=== PATIENT | male | born 1980 | race American Indian/Alaskan Native ===

== ENCOUNTER 2017-04-06 01:22 | Emergency (ER) | payer OTHER ==
[2017-04-06] MEDS ORDERED: REGLAN IV ONE (03:19)
--- NOTE | 2017-04-06 03:19 | Emergency Department Report ---
ED Headache HPI - General Chief Complaint: Headache Stated Complaint: HEADACHE Time Seen by Provider: 04/06/17 02:36 - History of Present Illness Initial Comments: 36M PMH none p/w c/o right sided headache x3-4 days. Pt states right radiated from anterior/right sided head to the rest of the head. Patient denies any photo or phonophobia no nausea no vomiting denies any fever or chills. Denies any recent head trauma. Denies any associated dizziness denies any associated dizziness or loss of consciousness. Denies any earache or sore throat denies any sinus congestion. Denies any blurry vision. No history of migraine headaches. Denies any family history of brain tumors or neurovascular problems. Denies any alcohol or substance abuse. States that he was seen at the [facility] on Saturday had blood work and head CT which was normal and discharged with prescription for Fioricet. Patient states the headache continued and is presenting today for a second assessment. On exam patient is awake alert and oriented 3 looks slightly uncomfortable but does not appear toxic. Patient states that he has not yet picked up his Fioricet and his headache is currently an 8 out of 10. Patient is fully lucid and able to follow all commands. Patient is accompanied by his Timing/Duration: other (48 hrs) Quality: moderate Head Injury Location: frontal, temporal Recent Head Trauma: no recent headache/trauma Allergies/Adverse Reactions: Allergies No Known Allergies Allergy (Verified 04/06/17 01:31) Home Medications: Ambulatory Orders Naproxen [Naprosyn TAB] 500 mg PO BID PRN #25 tablet 04/06/17 ED Review of Systems ROS: Stated complaint: HEADACHE Other details as noted in HPI Constitutional: denies: chills, fever Eyes: denies: eye pain, eye discharge, vision change ENT: denies: ear pain, throat pain Respiratory: denies: cough, shortness of breath, wheezing Cardiovascular: denies: chest pain, palpitations Endocrine: no symptoms reported Gastrointestinal: denies: abdominal pain, nausea, diarrhea Genitourinary: denies: urgency, dysuria Musculoskeletal: denies: back pain, joint swelling, arthralgia Skin: denies: rash, lesions Neurological: headache. denies: weakness, paresthesias Psychiatric: denies: anxiety, depression Hematological/Lymphatic: denies: easy bleeding, easy bruising ED Past Medical Hx - Past Medical History Previous Medical History?: No - Surgical History Past Surgical History?: No - Social History Smoking Status: Never Smoker Substance Use Type: Alcohol - Medications Home Medications: Home Medications Medication Instructions Recorded Confirmed Last Taken Type Naproxen [Naprosyn TAB] 500 mg PO BID PRN #25 tablet 04/06/17 Unknown Rx ED Physical Exam - General Limitations: No Limitations General appearance: alert, in no apparent distress - Head Head exam: Present: atraumatic, normocephalic - Eye Eye exam: Present: normal appearance, PERRL, EOMI - ENT ENT exam: Present: mucous membranes moist - Neck Neck exam: Present: normal inspection - Respiratory Respiratory exam: Present: normal lung sounds bilaterally. Absent: respiratory distress - Cardiovascular Cardiovascular Exam: Present: regular rate, normal rhythm. Absent: systolic murmur, diastolic murmur, rubs, gallop - GI/Abdominal GI/Abdominal exam: Present: soft, normal bowel sounds - Rectal Rectal exam: Present: deferred - Extremities Exam Extremities exam: Present: normal inspection - Back Exam Back exam: Present: normal inspection - Neurological Exam Neurological exam: Present: alert, oriented X3 - Expanded Neurological Exam Expanded Patient oriented to: Present: person, place, time Cranial nerves: EOM's Intact: Normal, Facial Sensation: Normal Cerebellar function: Finger to Nose: Normal, Heel to [place]: Normal, Romberg: Normal Sensory exam: Upper Extremity Light Touch: Normal, Lower Extremity Light Touch: Normal Motor strength exam: RUE: 5, LUE: 5, RLE: 5, LLE: 5 DTR: bicep (R): 3+, bicep (L): 3+, tricep (R): 3+, tricep (L): 3+, knee (R): 3+ , knee (L): 3+, ankle (R): 3+, ankle (L): 3+ Best Eye Response ([place]): (4) open spontaneously Best Motor Response ([place]): (6) obeys commands Best Verbal Response ([place]): (5) oriented [place] Total: 15 - Psychiatric Psychiatric exam: Present: normal affect, normal mood - Skin Skin exam: Present: warm, dry, intact, normal color. Absent: rash ED Course Vital Signs 04/06/17 04/06/17 04/06/17 01:31 04:17 06:51 Temperature 98.4 F Pulse Rate 70 62 60 Respiratory 20 18 18 Rate Blood Pressure 146/115 Blood Pressure 113/73 136/87 [Left] O2 Sat by Pulse 99 99 99 Oximetry ED Medical Decision Making - Medical Decision Making A/P: Migraine/tension type headache 1-patient's headache one from 9 out of 10-2 out of 10 with one dose of IV Reglan. Patient's blood pressure normalized after resolution of headache number rechecked twice 2-CT head within normal limits 3-patient has standing prescription from the [facility] for Fioricet, I will add naproxen 4-patient has no neurological deficits cranial nerves I through XII grossly intact, no facial droop and slurred speech no pronator drift strength 5 out of 5 all extremities deep tendon reflexes are intact and patient is fully lucid has no overt clinical neurological deficits 5- I discussed with patient the possibility of doing a lumbar puncture as this is a more sensitive test for subarachnoid hemorrhage. Patient states that since his headache got better and he has a normal head CT he is not interested in doing that at this time. I discussed the possibility of lumbar puncture with Dr. Greco as patient has no clinical neurological deficits it is unlikely that patient is experiencing subarachnoid hemorrhage. I advised patient to return to the ED if he experiences photophobia phonophobia worsened headache despite use of medications, any upper or lower extremities paresthesias or worsened headache Critical care attestation.: If time is entered above; I have spent that time in minutes in the direct care of this critically ill patient, excluding procedure time. ED Disposition Clinical Impression: Migraine headache Qualifiers: Migraine type: without aura Status migrainosus presence: without status migrainosus Intractability: not intractable Qualified Code(s): G43.009 - Migraine without aura, not intractable, without status migrainosus Disposition: - TO HOME OR SELFCARE Is pt being admited?: No Does the pt Need Aspirin: No Condition: Stable Instructions: Migraine Headache (ED), Acute Headache (ED) Prescriptions: Naproxen [Naprosyn TAB] 500 mg PO BID PRN #25 tablet PRN Reason: Headache Referrals: EDMUND BRICENO MD [Staff Physician] - 3-5 Days SEDA BARGER MD [Staff Physician] - 3-5 Days [facility] [Outside] - 3-5 Days Forms: Work/School Release Form(ED) Time of Disposition: 07:06
[2017-04-06] MEDS ORDERED: BOOSTRIX IM ONE (05:19)
[2017-04-06 06:51] VITALS: BP 136/87
[2017-04-06] MEDS ORDERED: TYLENOL PO ONE (07:04)
== END 2017-04-06 07:30 | disposition home or self-care (01) ==
LOC: ED 01:22
DX: G43.009 Migraine without aura, not intractable, without status migrainosus (principal)
CPT/HCPCS: 96374; 99283; J2765